=== PATIENT | female | born 1990 | race Caucasian/White ===

== ENCOUNTER 2017-06-04 09:25 | Emergency (ER) | payer OTHER ==
[~2017-06-04] VITALS: Ht 162.6 cm; Wt 97.0 kg
[~2017-06-04 09:25] MED LIST: LEVO50TA83 PO
[2017-06-04 09:32] VITALS: Ht 162.6 cm; Wt 97.0 kg
[2017-06-04] MEDS ORDERED: LORAZEPAM 0.5 MG TAB PO ONE (11:30)
--- NOTE | 2017-06-04 11:40 | RADRPT ---
PROCEDURE: XR Chest. CLINICAL INDICATION: chest pain TECHNIQUE: Single frontal view of the chest was obtained COMPARISON: None FINDINGS: The heart and mediastinum are within normal limits. The lungs are clear. There is no pleural effusion or pneumothorax. RPTAT: AA IMPRESSION: No acute disease. .Lloyd Almodovar MD, Date Time Electronically viewed and signed by .Lloyd Almodovar MD, on 06/04/2017 11:40 .S/
[2017-06-04 12:07] LABS: BASOPHIL # 0.1 10^3/ul (0.0-0.1); BASOPHILS % 0.6 % (0.0-2.0); EOSINOPHILS # 0.4 10^3/ul (0.0-0.5); EOSINOPHILS % 3.3 % (0.0-7.0); HEMATOCRIT 37.5 % (37.0-47.0); HEMOGLOBIN 11.7 g/dl (12.0-16.0); LYMPHOCYTES # 3.1 10^3/ul (0.8-2.9); LYMPHOCYTES % 26.3 % (15.0-51.0); MEAN CORPUSCULAR HGB CONC 31.2 g/dl (32.0-37.0); MEAN CORPUSCULAR VOLUME 80.1 fl (82.0-101.0); MEAN PLATELET VOLUME 12.5 fl (7.4-10.4); MONOCYTE # 0.9 10^3/ul (0.3-0.9); MONOCYTES % 7.7 % (0.0-11.0); NEUTROPHIL # 7.3 10^3/ul (1.6-7.5); NEUTROPHILS % 61.8 % (39.0-77.0); PLATELET COUNT 256 10^3/UL (140-415); RED BLOOD COUNT 4.68 10^6/ul (4.20-5.40); RED CELL DISTRIBUTION WIDTH 14.1 % (11.5-14.5); WHITE BLOOD COUNT 11.9 10^3/ul (4.8-10.8)
[2017-06-04 12:26] LABS: ALBUMIN/GLOBULIN RATIO 1.14; BILIRUBIN,INDIRECT 0.4 mg/dl (0-1.1); BILIRUBIN,TOTAL 0.4 mg/dl (0.2-1.3); CALCIUM 9.6 mg/dl (8.4-10.2); CREATININE 0.77 mg/dl (0.44-1.00); POTASSIUM 3.7 mmol/L (3.5-5.1); TOTAL PROTEIN 7.5 g/dl (6.1-8.1)
[2017-06-04] MEDS ORDERED: ALBUTEROL 0.083% (NEB) 2.5 MG/3 ML AMP HHN STA (12:37)
[2017-06-04 14:00] VITALS: BP 118/74; PULSE 89; RESP 20; TEMP 99.3
[2017-06-04] MEDS ORDERED: ELIM TOP (14:03)
--- NOTE | 2017-06-04 16:50 | ERD ---
ER Documentation Chief Complaint Chief Complaint SOB WITH ANXIETY, HX OF ASTHMA HPI 26-year-old female comes in history of asthma presenting to emergency department with symptoms of shortness of breath, palpitations that started today during school. She describes chest tightness at this time, and her history of asthma is being treated with multiple different medications including inhaled corticosteroid, Singulair, but she states that she did not have her albuterol because she had forgotten it at home. She reports intermittent palpitations, she feels as if there are multiple beats that occur in a row and then resolved. She denies leg pain, swelling, and she does not taking exogenous steroids, denies history of malignancy, pulmonary embolus. Comes in with a pruritic rash she has had for 2 weeks, her has had this as well and she states it started after they left the emergency department when her son was sick 2 weeks ago. ROS All systems reviewed and are negative except as per history of present illness. Medications Home Meds Active Scripts Permethrin* (Elimite*) 5% Cr, 1 APPLIC TOP ONCE, #2 TUB Prov:BRITTANY WHITE PA-C 06/04/17 Reported Medications Levothyroxine Sodium* (Synthroid*) 50 Mcg Tablet, 50 MCG PO DAILY 08/07/11 Allergies Allergies: Coded Allergies: No Known Allergy (Verified , 09/03/12) PMhx/Soc History of Surgery: Yes (APPENDECTOMY, THYROID) Anesthesia Reaction: No Hx Neurological Disorder: No Hx Respiratory Disorders: Yes (ASTHMA) Hx Cardiac Disorders: No Hx Psychiatric Problems: No Hx Miscellaneous Medical Probl: Yes Hx Alcohol Use: No Hx Substance Use: No Hx Tobacco Use: No Physical Exam Vitals Vital Signs Date Time Temp Pulse Resp B/P Pulse Ox O2 Delivery O2 Flow Rate FiO2 06/04/17 14:00 99.3 89 20 118/74 100 06/04/17 09:32 99.8 100 17 121/56 100 Physical Exam General: Well-developed, well-nourished. The patient appears in no acute distress. HEENT: Head is normocephalic, atraumatic. No scleral icterus. Neck: Supple. Nontender. Lungs: Clear to auscultation. Normal air movement. Heart: Regular rate and rhythm. S1 and S2 are normal. No murmurs, gallops, or rubs. Abdomen: Soft, nontender, nondistended. Bowel sounds are normoactive. Extremities: No clubbing or cyanosis. Normal pulses. Moving extremities x 4. No weakness. Neurologic: Alert and oriented 3. No focal deficits. Skin: Multiple scab-like lesions to her trunk, and extremities. Result Diagram: 06/04/17 1155 06/04/17 1155 Results 24 hrs Laboratory Tests Test 06/04/17 11:55 White Blood Count 11.910^3/ul Red Blood Count 4.6810^6/ul Hemoglobin 11.7g/dl Hematocrit 37.5% Mean Corpuscular Volume 80.1fl Mean Corpuscular Hemoglobin 25.0pg Mean Corpuscular Hemoglobin Concent 31.2g/dl Red Cell Distribution Width 14.1% Platelet Count 11139^3/UL Mean Platelet Volume 12.5fl Neutrophils % 61.8% Lymphocytes % 26.3% Monocytes % 7.7% Eosinophils % 3.3% Basophils % 0.6% Nucleated Red Blood Cells % 0.0/100WBC Neutrophils # 7.310^3/ul Lymphocytes # 3.110^3/ul Monocytes # 0.910^3/ul Eosinophils # 0.410^3/ul Basophils # 0.110^3/ul Nucleated Red Blood Cells # 0.010^3/ul Sodium Level 141mmol/L Potassium Level 3.7mmol/L Chloride Level 105mmol/L Carbon Dioxide Level 26mmol/L Anion Gap 14 Blood Urea Nitrogen 8mg/dl Creatinine 0.77mg/dl Glucose Level 95mg/dl Calcium Level 9.6mg/dl Total Bilirubin 0.4mg/dl Direct Bilirubin 0.00mg/dl Indirect Bilirubin 0.4mg/dl Aspartate Amino Transf (AST/SGOT) 35IU/L Alanine Aminotransferase (ALT/SGPT) 46IU/L Alkaline Phosphatase 74IU/L Total Protein 7.5g/dl Albumin 4.0g/dl Globulin 3.50g/dl Albumin/Globulin Ratio 1.14 Current Medications Medications (Trade) Dose Ordered Sig/Eliazar Route PRN Reason Start Time Stop Time Status Last Admin Dose Admin Lorazepam (Ativan) 0.5 mg ONCE ONCE PO 06/04/17 11:30 06/04/17 11:31 DC 06/04/17 11:44 Albuterol (Proventil 0.083% (Neb)) 5 mg ONCE STAT HHN 06/04/17 12:37 06/04/17 12:38 DC 06/04/17 12:56 12-lead EKG(interpreted by supervising physician): Dr. Quezada Rate/Rhythm: Normal Sinus Rhythm, rate of 82 QRS, ST, T-waves: No changes consistent w/ acute ischemia, no intervals, no dysrhythmias, no ectopy Impression: No evidence of ischemia or arrhythmia DIAGNOSTIC IMAGING REPORT Patient: MARIELY PADRON : 1990 Age: 26 Sex: F MR #: [id number] DOS: 06/04/17 1104 Ordering MD: BRITTANY WHITE PA-C Location: [facility] Room/Bed: PROCEDURE: XR Chest. CLINICAL INDICATION: chest pain TECHNIQUE: Single frontal view of the chest was obtained COMPARISON: None FINDINGS: The heart and mediastinum are within normal limits. The lungs are clear. There is no pleural effusion or pneumothorax. RPTAT: AA IMPRESSION: No acute disease. .Lloyd Almodovar MD, MD Date Time Electronically viewed and signed by .Lloyd Almodovar MD, MD on 06/04/2017 11: 40 .S/ CC: BRITTANY WHITE PA-C Procedures/MDM 26-year-old female comes in with chest tightness, and a rash, the patient was given Ativan in the emergency department initially but she states that she still felt chest tightness, and she was treated with albuterol 5 mg nebulized breathing solution. Re-auscultation shows clear breath sounds, she states that her chest tightness has improved. Patient had an EKG, chest x-ray as well as labs are all unremarkable. Differential diagnosis includes, asthma exacerbation , acute coronary syndrome, dissection, pulmonary embolus, pneumonia. The patient does not appear to be in any respiratory distress at this time, she is not hypoxic and her pulse was rechecked and she is not tachycardic. She is PERC negative. She was treated with albuterol here and she reports a feeling much better. She reports intermittent palpitations, her electrolytes and her EKG show no abnormalities at this time. I have spoken to the patient and have asked her to follow-up with her doctor to get a referral to see a hogshead dumper to not further workup, possible Holter monitor for further evaluation continuing care. Secondarily, she also comes in with a rash, suspect patient has scabies, given the scab-like presentation and her history of pruritus. The patient will be given permethrin cream to apply. Departure Diagnosis: Primary Impression: Palpitations Additional Impression: Rash Condition: Good Patient Instructions: Palpitations Additional Instructions: PASTE THINNER: YOU HAVE A MEDICAL CONDITION WHICH REQUIRES YOU TO SEE A SPECIALIST WITHIN THE NEXT 1 WEEK. PLEASE FOLLOW UP WITH YOUR PRIMARY PHYSICIAN FOR REFFERAL.IF YOU DO NOT HAVE A PRIMARY CARE PHYSICIAN AND/OR YOU CAN NOT AFFORD TO SEE A PHYSICIAN THE FOLLOWING RESOURCES HAVE BEEN SUPPLIED TO YOU. IT IS YOUR RESPONSIBILITY TO BE SEEN BY THE SPECIALIST BRITTANY WHITE PA-C Jun 04, 2017 16:49
== END 2017-06-04 14:00 | disposition home or self-care (01) ==
LOC: EDUNIT# 09:25 → FTE 09:25
DX: R00.2 Palpitations (principal); R21 Rash and other nonspecific skin eruption; J45.909 Unspecified asthma, uncomplicated
CPT/HCPCS: 36415; 71010; 80053; 85025; 93005; Z7502; Z7610